=== PATIENT | female | born 2005 | race Caucasian/White ===

== ENCOUNTER 2025-08-29 15:59 | Outpatient (CLI) | payer BC, SELFPAY | END 2025-08-29 16:00 | disposition home or self-care (01) | PROVIDERS: PCP Family Medicine; Visit Provider Family Medicine | DX: F33.1 Major depressive disorder, recurrent, moderate (principal); F41.9 Anxiety disorder, unspecified; R04.0 Epistaxis; Z13.6 Encounter for screening for cardiovascular disorders | CPT/HCPCS: 80053; 80061; 82728; 83540; 83550; 84443 ==